=== PATIENT | male | born 1940 | race Caucasian/White ===

== ENCOUNTER 2016-04-22 05:51 | Emergency (ER) | payer OTHER ==
[~2016-04-22] VITALS: Ht 185.4 cm; Wt 109.1 kg
[~2016-04-22 05:51] MED LIST: ADVAIR 250/501 DISK IH; ALTACE1.25 MG PO; ASPIRIN325 MG PO; ASPIRIN81 M2 PO; CARDIZEM CD240 MG PO; CARDIZEM CD360 MG PO; COMBIVENT200 INHALA IH; COUMADIN5 MG PO; COUMADIN7.5 MG PO; Cardizem PO; Ceftin PO; Coumadin,Jantoven PO; DIGOXIN250 MCG PO; FINASTERIDE5 MG PO; FLOMAX0.4 MG PO; Flomax PO; GLIMEPIRIDE1 MG PO; GLUCOPHAGE1000 MG PO; HEART MED; LANOXIN125 MCG PO; LANOXIN250 MCG PO; LOPRESSOR100 M1 PO; LOPRESSOR50 MG PO; Lanoxin,Digitek PO; METFORMIN HCL500 MG PO; METOPROLOL SUC100 MG PO; NOHOMEMEDS; PROSCAR5 MG PO; Proscar PO; RAMIPRIL1.25 MG PO; SIMVASTATIN20 MG PO; SPIRIVA1 INHALATI IH; TAMSULOSIN HCL0.4 MG PO; TIMOPTIC-0100 DROP/1 BOTH EYES; Timoptic-0.5%,Isatol BOTH EYES; ZOCOR20 MG PO; Zocor PO
[2016-04-22 07:16] LABS: BASOPHIL COUNT 0.1 K/uL (0-0.1); EOSINOPHIL (%) 1.8 % (0-5); EOSINOPHIL COUNT 0.2 K/uL (0-0.3); HEMATOCRIT 48.4 % (38.0-50.0); IMMATURE GRANULOCYTE (%) 0.3 % (0.0-0.7); INSTRUMENT ABS NEUTROPHIL CT 10.4 K/uL; LYMPHOCYTE COUNT 1.2 K/uL (1.0-2.8); MCH 28.6 PG (29.0-34.0); MCHC 31.8 G/DL (30.0-36.0); MCV 89.8 FL (86-99); MEAN PLAT.VOLUME 9.7 uM^3 (9.0-12.4); MONOCYTE (%) 5.6 % (3-12); MONOCYTE COUNT 0.7 K/uL (0-0.8); NEUTROPHIL (%) 82.4 % (45-76); NEUTROPHIL COUNT 10.4 K/uL (1.8-6.4); PLATELET COUNT 209 K/uL (156-360); RED BLOOD COUNT 5.39 M/uL (4.00-5.50); WHITE BLOOD COUNT 12.6 K/uL (4.1-10.2)
[2016-04-22 07:24] LABS: INTER. NORMALIZED RATIO 1.7; PROTHROMBIN TIME 17.6 (9.2-11.2)
[2016-04-22 07:28] LABS: CHLORIDE 107 mEq/L (99-109); POTASSIUM 4.3 mEq/L (3.7-5.4); SODIUM 140 mEq/L (136-147)
[2016-04-22 07:30] LABS: GLUCOSE 172 mg/dL (70-99)
[2016-04-22 07:31] LABS: ANION GAP 10 MEQ/L (2-14)
[2016-04-22 07:34] LABS: GFR ESTIMATE (CALCULATED) 57 mL/min/; UREA NITROGEN (BUN) 22 mg/dL (9-23)
[2016-04-22 09:18] LABS: ADD MIUA? YES; BILIRUBIN NEGATIVE; BLOOD MODERATE; COLOR YELLOW ((YELLOW)); GLUCOSE (STRIP) 150; KETONES 5; LEUKOCYTES NEGATIVE; NITRITE NEGATIVE; PROTEIN (STRIP) 100; SPECIFIC GRAVITY 1.015 (1.000-1.030); UROBILINOGEN 0.2 MG/DL (0.2-1.0)
[2016-04-22 09:20] LABS: BACTERIA NONE SEEN /HPF; EPITHELIAL CELLS NONE SEEN /HPF; MUCUS TRACE /LPF; RED BLOOD CELLS 0-5 /HPF (0-5); WHITE BLOOD CELLS 0-5 /HPF (0-5)
[2016-04-22] MEDS ORDERED: FLOMAX0.4 MG PO (09:47)
[2016-04-22] MEDS ORDERED: ZOFRAN ODT4 MG PO (09:47)
[2016-04-22] MEDS ORDERED: PERCOCET 5/31 TABLET PO (09:47)
[2016-04-22 10:54] VITALS: BP 140/76
== END 2016-04-22 11:11 | disposition home or self-care (01) ==
LOC: EME 05:51
PROVIDERS: Emergency Medicine
DX: N20.1 Calculus of ureter (principal); E11.9 Type 2 diabetes mellitus without complications; J44.9 Chronic obstructive pulmonary disease, unspecified; I10 Essential (primary) hypertension; Z79.01 Long term (current) use of anticoagulants; Z79.84 Long term (current) use of oral hypoglycemic drugs; Z79.82 Long term (current) use of aspirin; Z87.891 Personal history of nicotine dependence
CPT/HCPCS: 74176; 80048; 81003; 85025; 85610; 99281; 99285; J2270; J2405; J7030